=== PATIENT | male | born 1990 | race Caucasian/White ===

== ENCOUNTER 2016-04-23 17:53 | Emergency (ER) | payer BC ==
[2016-04-23 18:17] VITALS: BP 142/72
--- NOTE | 2016-04-23 18:54 | UC ---
Respiratory Complaint HPI - HPI Summary HPI Summary: 25 yo male with cough/runny nose x 3 days no f/c no n/v/d no myalgias no CP or sob - History of Current Complaint Chief Complaint: UCGeneralIllness Stated Complaint: COUGH CONGESTION Time Seen by Provider: 04/23/16 18:41 Onset/Duration: Sudden Onset, Lasting Days Timing: Constant Severity Initially: Mild Severity Currently: Mild Pain Intensity: 0 Pain Scale Used: 0-10 Numeric Aggravating Factors: Nothing Alleviating Factors: Nothing Associated Signs And Symptoms: Positive: Nasal Congestion. Negative: Dyspnea, Fever, Chills, Pleuritic Chest Pain, Wheezing, Hemoptysis, Dizziness, Calf Pain , Calf Swelling, Edema, URI, Hoarseness, Sinus Discomfort - Allergies/Home Medications Allergies/Adverse Reactions: Allergies Allergy/AdvReac Type Severity Reaction Status Date / Time Doxycycline AdvReac Severe vomit and Verified 04/23/16 18:17 sweat Home Medications: Home Medications Metoprolol Tartrate TAB* [Lopressor TAB*] 50 mg PO BID 04/23/16 [History Confirmed 04/23/16] PMH/Surg Hx/FS Hx/Imm Hx Previously Healthy: Yes Endocrine History Of: Denies: Diabetes Cardiovascular History Of: Reports: Hypertension Denies: Pacemaker/ICD Respiratory History Of: Reports: Asthma GI/ History Of: Denies: Renal Disease - Surgical History Surgical History: Yes Surgery Procedure, Year, and Place: nose septum reconstruction 2013; 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 x 2 and 2013 x 1, T&A 2007 - Family History Known Family History: Positive: Hypertension, Diabetes - Social History Alcohol Use: Occasionally Substance Use Type: None Smoking Status (MU): Never Smoked Tobacco Household Exposure Type: Cigarettes - Immunization History Most Recent Influenza Vaccination: none Review of Systems Constitutional: Negative Skin: Negative Eyes: Negative ENT: Sore Throat, Nasal Discharge Respiratory: Cough Cardiovascular: Negative Gastrointestinal: Negative Genitourinary: Negative Motor: Negative Neurovascular: Negative Musculoskeletal: Negative Neurological: Negative Psychological: Negative All Other Systems Reviewed And Are Negative: Yes Physical Exam Triage Information Reviewed: Yes Appearance: Well-Appearing, No Pain Distress, Well-Nourished Vital Signs: Initial Vital Signs Temp 98.0 F 04/23/16 18:13 Pulse 75 04/23/16 18:13 Resp 17 04/23/16 18:13 BP 142/72 04/23/16 18:13 Pulse Ox 99 04/23/16 18:13 ENT: Positive: Hearing grossly normal, Pharynx normal, Nasal congestion, Nasal drainage. Negative: Tonsillar swelling, Tonsillar exudate, Trismus, Muffled/ hoarse voice Neck: Positive: Supple, Nontender, No Lymphadenopathy Respiratory: Positive: Lungs clear, Normal breath sounds, No respiratory distress, No accessory muscle use Cardiovascular: Positive: RRR, No Murmur, Pulses Normal Musculoskeletal: Positive: ROM Intact, No Edema Neurological: Positive: Alert, Muscle Tone Normal Psychological Exam: Normal Skin Exam: Normal UC Diagnostic Evaluation - Laboratory O2 Sat by Pulse Oximetry: 99 Respiratory Course/Dx - Differential Dx/Diagnosis Provider Diagnoses: viral URI Discharge - Discharge Plan Condition: Stable Disposition: HOME Patient Education Materials: Upper Respiratory Infection (ED) Forms: *Gen. Provider Communication Referrals: BLADE Cardona [Primary Care Provider] - Additional Instructions: 25 yo male with runny nose/cough x 3 days no fever no chills no myalgias no CP or SOB states his boss wants him to get a note saying he is ok to work
== END 2016-04-23 19:10 | disposition home or self-care (01) ==
LOC: UCCORT 17:53
DX: J06.9 Acute upper respiratory infection, unspecified (principal); I10 Essential (primary) hypertension; Z88.1 Allergy status to other antibiotic agents; Z77.22 Contact with and (suspected) exposure to environmental tobacco smoke (acute) (chronic)
CPT/HCPCS: 99211; G0463

== ENCOUNTER 2016-06-27 10:37 | Emergency (ER) | payer SELFPAY ==
[2016-06-27 12:07] VITALS: BP 130/77
--- NOTE | 2016-06-27 12:33 | UC ---
Hand/Wrist HPI - HPI Summary HPI Summary: patient hit his left hand with a hammer two days ago. 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 wrist movement good, snuff box tenderness - History Of Current Complaint Chief Complaint: UCUpperExtremity Stated Complaint: LEFT HAND INJURY W/C Time Seen by Provider: 06/27/16 12:26 Hx Obtained From: Patient ?: No Onset/Duration: Sudden Onset, Lasting Days Severity Initially: Severe Severity Currently: Moderate Character Of Pain: Aching, Stiffness Alleviating: Nothing Associated Signs And Symptoms: Positive: Swelling, Bruising - Allergies/Home Medications Allergies/Adverse Reactions: Allergies Allergy/AdvReac Type Severity Reaction Status Date / Time Doxycycline AdvReac Severe vomit and Verified 06/27/16 12:07 sweat Home Medications: Home Medications Ibuprofen TAB* [Advil TAB*] 800 mg PO Q8H PRN 06/27/16 [History Confirmed ] Levocarnitine 330 mg PO TID 06/27/16 [History Confirmed 06/27/16] Oxcarbazepine [Trileptal 300 mg tab] 300 mg PO BID 06/27/16 [History Confirmed 06/27/16] PMH/Surg Hx/FS Hx/Imm Hx Previously Healthy: Yes Endocrine History Of: Denies: Diabetes Cardiovascular History Of: Reports: Hypertension Denies: Pacemaker/ICD Respiratory History Of: Reports: Asthma GI/ History Of: Denies: Renal Disease - Surgical History Surgical History: Yes Surgery Procedure, Year, and Place: nose septum reconstruction 2013; 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 x 2 and 2012 x 1, T&A 2007 - Family History Known Family History: Positive: Hypertension, Diabetes - Social History Alcohol Use: Rare Substance Use Type: None Smoking Status (MU): Never Smoked Tobacco Household Exposure Type: Cigarettes - Immunization History Most Recent Influenza Vaccination: none Review of Systems Constitutional: Negative Skin: Bruising Eyes: Negative ENT: Negative Respiratory: Negative Cardiovascular: Negative Gastrointestinal: Negative Genitourinary: Negative Motor: Negative Neurovascular: Negative Musculoskeletal: Edema - left hand Neurological: Negative Psychological: Negative All Other Systems Reviewed And Are Negative: Yes Physical Exam Triage Information Reviewed: Yes Appearance: Well-Appearing, Well-Nourished, Pain Distress Vital Signs: Initial Vital Signs Temp 97.7 F 06/27/16 12:00 Pulse 59 06/27/16 12:00 Resp 12 06/27/16 12:00 BP 130/77 06/27/16 12:00 Pulse Ox 100 06/27/16 12:00 Vital Signs Reviewed: Yes Eye Exam: Normal Eyes: Positive: Conjunctiva Clear ENT Exam: Normal ENT: Positive: Hearing grossly normal, Pharynx normal, TMs normal Dental Exam: Normal Neck exam: Normal Neck: Positive: Supple, Nontender, No Lymphadenopathy Respiratory Exam: Normal Respiratory: Positive: Chest non-tender, Lungs clear, Normal breath sounds Cardiovascular Exam: Normal Cardiovascular: Positive: RRR, No Murmur, Pulses Normal Abdominal Exam: Normal Abdomen Description: Positive: Nontender, No Organomegaly, Soft Bowel Sounds: Positive: Present Musculoskeletal Exam: Normal Musculoskeletal: Positive: Strength Intact, ROM Intact, Edema @ - in left hand Neurological Exam: Normal Psychological Exam: Normal Skin Exam: Normal Hand/Wrist Course/Dx - Course Course Of Treatment: hx obtained, exam performed, meds reviewed, denies need for pain medication. xray obtained neg for fracture. - Differential Dx/Diagnosis Differential Diagnosis/HQI/PQRI: Contusion, Dislocation, Fracture, Infection, Sprain, Strain Provider Diagnoses: left hand contusion Discharge - Discharge Plan Condition: Stable Disposition: HOME Patient Education Materials: Contusion in Adults (ED) Referrals: BLADE Cardona [Medical Doctor] - Additional Instructions: wear the silvano wrap for swelling, ibuprofen as needed for pain
--- NOTE | 2016-06-27 12:56 | RAD ---
INDICATION: Left hand injury COMPARISON: None TECHNIQUE: AP, lateral, and oblique views were obtained. FINDINGS: There is no acute fracture or dislocation. There is prominent soft tissue swelling over the dorsum of the hand.. IMPRESSION: SOFT TISSUE SWELLING. NO ACUTE FRACTURE.
== END 2016-06-27 13:09 | disposition home or self-care (01) ==
LOC: UCCORT 10:37
DX: S60.222A Contusion of left hand, initial encounter (principal); W22.8XXA Striking against or struck by other objects, initial encounter; Y93.89 Activity, other specified; Y92.89 Other specified places as the place of occurrence of the external cause; Y99.0 Civilian activity done for income or pay; I10 Essential (primary) hypertension; J45.909 Unspecified asthma, uncomplicated; Z88.1 Allergy status to other antibiotic agents; Z77.22 Contact with and (suspected) exposure to environmental tobacco smoke (acute) (chronic)
CPT/HCPCS: 99212; G0463

== ENCOUNTER 2018-08-13 18:21 | Emergency (ER) | payer SELFPAY ==
--- NOTE | 2018-08-13 19:55 | UC ---
Hand/Wrist HPI - HPI Summary HPI Summary: Punched wall 1 mo. ago w/ R hand. Today he has noticed it still hurts and sometimes feels bruised. OF note he is R handed. denies any changes to function. - History Of Current Complaint Stated Complaint: RIGHT HAND OLD INJURY Time Seen by Provider: 08/13/18 19:54 Hx Obtained From: Patient Character Of Pain: Dull Aggravating Factor(s): Movement - certain movements. Associated Signs And Symptoms: Positive: Swelling. Negative: Redness, Bruising , Numbness/Tingling - Allergies/Home Medications Allergies/Adverse Reactions: Allergies Allergy/AdvReac Type Severity Reaction Status Date / Time doxycycline Allergy Vomiting Verified 08/13/18 20:03 PMH/Surg Hx/FS Hx/Imm Hx Previously Healthy: Yes Cardiovascular History: Hypertension - Surgical History Surgical History: Yes Surgery Procedure, Year, and Place: nose septum reconstruction 2013; 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 x 2 and 2013 x 1, T&A 2007 - Family History Known Family History: Positive: Hypertension, Diabetes - Social History Alcohol Use: Rare Substance Use Type: None Smoking Status (MU): Never Smoked Tobacco Household Exposure Type: Cigarettes - Immunization History Most Recent Influenza Vaccination: none Most Recent Tetanus Shot: within last couple of years Review of Systems All Other Systems Reviewed And Are Negative: Yes Constitutional: Negative: Fever Skin: Negative: Bruising Motor: Negative: Decreased ROM, Weakness Musculoskeletal: Positive: Arthralgia - R hand/fist. Negative: Decreased ROM Neurological: Negative: Weakness, Paresthesia Physical Exam Triage Information Reviewed: Yes Appearance: Well-Appearing Vital Signs Reviewed: Yes Musculoskeletal: Positive: Strength Intact - R hand, ROM Intact - R, No Edema - R Neurological: Positive: Alert Hand/Wrist Course/Dx - Course Course Of Treatment: R chronic hand pain after punching wall 1 mo. ago. XRAY did not show obvious fx. R hand dominant. Could be residual pain and offered PT. Pt declined. ADvised otc nsaids for inflammation. - Differential Dx/Diagnosis Differential Diagnosis/HQI/PQRI: Tendonitis, Tenosynovitis Provider Diagnosis: Hand pain, right Discharge - Sign-Out/Discharge Documenting (check all that apply): Patient Departure All imaging exams completed and their final reports reviewed: No - Discharge Plan Condition: Good Disposition: HOME Patient Education Materials: Arthralgia (ED) Referrals: Govind Rodney PA [Primary Care Provider] - Additional Instructions: follow up with your main doctor if this still hurts - Billing Disposition and Condition Condition: GOOD Disposition: Home
[2018-08-13 20:07] VITALS: BP 148/92
== END 2018-08-13 20:28 | disposition home or self-care (01) ==
LOC: UCCORT 18:21
DX: M79.641 Pain in right hand (principal); I10 Essential (primary) hypertension; Z77.22 Contact with and (suspected) exposure to environmental tobacco smoke (acute) (chronic)
CPT/HCPCS: 99211; G0463

== ENCOUNTER 2018-08-13 18:21 | Emergency (ER) | payer BC, OTHER ==
--- OUTSIDE RECORDS SUMMARY | 2018-08-13 18:40 | XMS REPORT | Continuity of Care Document ---
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 Onset: 12/30/2011 Head and neck swelling Luke Monzon M.D. Onset: 06/10/2012 Deviated nasal septum Luke Monzon M.D. Onset: 12/30/2011 Sialoadenitis Luke Monzon M.D. Onset: 06/10/2012 Dysfunction of eustachian tube Luke Monzon M.D. Onset: 12/30/2011 Gastroesophageal reflux disease Luke Monzon M.D. Onset: 06/10/2012 Family History Date Family Member(s) Observation Comments General Asthma And Allergies General None Social History Type Date Description Comments Sex Unknown Marital Status Single Marital Status Single Occupation [employer] Occupation Disabled Tobacco Use Start: Unknown Never Smoked Cigarettes Tobacco Use Start: Unknown Never Smoked Cigarettes ETOH Use Rarely consumes alcohol ETOH Use Drinks Alcoholic Beverages Rarely Recreational Drug Use Never Used Drugs Recreational Drug Use Never Used Drugs Tobacco Use Start: Unknown Patient has never smoked Allergies, Adverse Reactions, Alerts Active Allergies Reaction Severity Comments Date Doxycycline VOMITTING 12/30/2011 Medications Active Medications SIG Qnty Indications Ordering Provider Date Meclizine HCL 1 po tid 20tabs Unknown 25mg Tablets Ventolin HFA 2 puffs every 4 1units Unknown hrs as needed 108(90Base) mcg/Act only Aerosol Gabapentin 1 by mouth three Unknown 600mg times a day Tablets Tizanidine HCL 1 by mouth three Unknown 4mg times a day as Capsules needed Metoprolol Tartrate 1 by mouth twice Unknown a day 50mg Tablets Vanquish Unknown [phone] Tablets Lamotrigine every day Unknown 100mg Tablets History Medications Dexamethasone one tab daily for 15tabs Luke Monzon, 01/31/2014 - 1mg Tablets 15 days. M.D. 02/11/2014 Mupirocin apply around the 1units Luke Monzon, 11/29/2013 - 2% Ointment Neck twice daily M.D. 01/30/2014 2 weeks Please script was wrong. thanks Amoxicillin 1 by mouth twice 20tabs Luke Monzon, 11/11/2013 - 875mg Tablets a day for 10 days M.D. 11/28/2013 Prednisone 1 by mouth every 3tabs Luke Monzon, 11/11/2013 - 10mg Tablets morning M.D. 11/28/2013 Nasonex 2 sprays each 17GMbottl Luke Monzon, 09/27/2013 - 50mcg/Act nostril daily M.D. 11/10/2013 Suspension Cephalexin 500 mg tid 7 days 21tabs Luke Monzon, 06/25/2013 - 500mg Tablets M.D. 09/26/2013 Percocet 2 po qid prn for 12tabs Luke Monzon, 06/25/2013 - 5-325mg Tablets pain M.D. 09/26/2013 Omeprazole 1 po qd 60caps Luke Monzon, 06/02/2013 - 40mg Capsules DR Barrera 11/10/2013 Cyclobenzaprine HCL 1/2-1 tab qhs 14tabs Luke Monzon, 12/11/2012 - 10mg M.D. 06/02/2013 Tablets Percocet 1-2 po q 4 hours 24tabs Luke Monzon, 11/03/2012 - 5-325mg Tablets prn for pain M.D. 11/12/2012 Azelastine HCL 2 sprays each 1units Luke Monzon, 09/02/2012 - 137mcg/[place] nostril qd M.D. 10/29/2012 Solution Astepro 2 sprays each 1units Luke Monzon, 08/21/2012 - 0.15% Solution nostril qd M.D. 10/29/2012 Fluticasone Propionate 2 sprays both 3units Luke Monzon, 08/17/2012 - nostrils qd M.D. 08/21/2012 50mcg/Act Suspension Cephalexin 500 mg tid 7 days 21tabs Luke Monzon, 06/10/2012 - 500mg Tablets M.D. 06/23/2012 Amoxicillin 1 po tid 21tabs Luke Monzon, 03/10/2012 - 500mg Tablets M.D. 06/23/2012 Meclizine HCL 1-2 po q 6 hours 30tabs Unknown - 12.5mg prn dizzyness 01/10/2012 Tablets Lisinopril Daily Unknown - 10mg Tablets 03/19/2016 Hydrocodone/Acetaminoph prn Unknown - en 10/29/2012 5-325mg Tablets Lisinopril/Hydrochlorot Unknown - hiazide 10/29/2012 10-12.5mg Tablets Ibuprofen 1 po q 8hrs prn 60tabs Unknown - 800mg Tablets 01/30/2014 Cephalexin 14tabs Unknown - 500mg Tablets 11/19/2012 Neurontin take as directed 90caps Unknown - Capsules 03/19/2016 Mylanta Unknown - [id number]/5ML 03/19/2016 Suspension Vital Signs Date Vital Result Comment 07/16/2018 3:32pm Weight 201.00 lb Height 71 inches 5'11" BMI (Body Mass Index) 28.0 kg/m2 BP Systolic 107 mmHg BP Diastolic 76 mmHg Heart Rate 87 /min O2 % BldC Oximetry 98 % Body Temperature 98.1 F Pain Level 0 02/10/2017 2:15pm Weight 204.25 lb Height 71 inches 5'11" BMI (Body Mass Index) 28.5 kg/m2 BP Systolic 147 mmHg BP Diastolic 88 mmHg Heart Rate 77 /min O2 % BldC Oximetry 99 % Body Temperature 97.9 F Pain Level 0 11/29/2016 8:00am Weight 207.00 lb Height 71 inches 5'11" BMI (Body Mass Index) 28.9 kg/m2 BP Systolic 126 mmHg BP Diastolic 84 mmHg Heart Rate 60 /min O2 % BldC Oximetry 98 % Body Temperature 97.5 F Pain Level 0 05/29/2016 8:22am Weight 213.00 lb Height 71 inches 5'11" BMI (Body Mass Index) 29.7 kg/m2 BP Systolic 122 mmHg BP Diastolic 78 mmHg Heart Rate 71 /min O2 % BldC Oximetry 97 % Body Temperature 98.0 F 04/04/2016 9:46am Weight 198.00 lb Height 71 inches 5'11" BMI (Body Mass Index) 27.6 kg/m2 BP Systolic 130 mmHg BP Diastolic 70 mmHg Heart Rate 59 /min O2 % BldC Oximetry 99 % Body Temperature 97.6 F 03/20/2016 1:55pm Weight 199.00 lb Height 71 inches 5'11" BMI (Body Mass Index) 27.8 kg/m2 BP Systolic 138 mmHg BP Diastolic 88 mmHg Heart Rate 91 /min O2 % BldC Oximetry 98 % Body Temperature 99.2 F 03/07/2014 8:49am Weight 207.00 lb Height 71 inches 5'11" BMI (Body Mass Index) 28.9 kg/m2 BP Systolic 138 mmHg BP Diastolic 92 mmHg Heart Rate 98 /min O2 % BldC Oximetry 96 % Body Temperature 96.8 F 01/31/2014 8:31am Weight 201.38 lb with boots Height 71 inches 5'11" BMI (Body Mass Index) 28.1 kg/m2 BP Systolic 134 mmHg BP Diastolic 84 mmHg Heart Rate 83 /min O2 % BldC Oximetry 98 % Body Temperature 97.5 F 11/29/2013 8:50am Weight 200.38 lb Height 71 inches 5'11" BMI (Body Mass Index) 27.9 kg/m2 BP Systolic 124 mmHg BP Diastolic 82 mmHg Heart Rate 94 /min O2 % BldC Oximetry 98 % Body Temperature 97.1 F 11/11/2013 8:48am Weight 199.00 lb Height 71 inches 5'11" BMI (Body Mass Index) 27.8 kg/m2 BP Systolic 130 mmHg BP Diastolic 82 mmHg Heart Rate 105 /min O2 % BldC Oximetry 98 % Body Temperature 98.0 F 09/27/2013 9:08am Weight 204.00 lb Height 71 inches 5'11" BMI (Body Mass Index) 28.4 kg/m2 BP Systolic 130 mmHg BP Diastolic 78 mmHg Heart Rate 72 /min O2 % BldC Oximetry 104 % Body Temperature 98.2 F 07/14/2013 6:42pm Weight 200.38 lb Height 71 inches 5'11" BMI (Body Mass Index) 27.9 kg/m2 BP Systolic 138 mmHg BP Diastolic 80 mmHg Heart Rate 93 /min O2 % BldC Oximetry 97 % Body Temperature 99.5 F 06/28/2013 10:06am BP Systolic 122 mmHg BP Diastolic 82 mmHg Heart Rate 99 /min O2 % BldC Oximetry 98 % Body Temperature 97.8 F 06/25/2013 3:39pm BP Systolic 132 mmHg BP Diastolic 80 mmHg Heart Rate 98 /min O2 % BldC Oximetry 99 % Body Temperature 98.6 F 06/02/2013 1:49pm Weight 202.25 lb Height 71 inches 5'11" BMI (Body Mass Index) 28.2 kg/m2 BP Systolic 114 mmHg BP Diastolic 78 mmHg Body Temperature 98.9 F 12/11/2012 2:29pm Weight 203.00 lb Height 71 inches 5'11" BMI (Body Mass Index) 28.3 kg/m2 BP Systolic 112 mmHg BP Diastolic 80 mmHg Heart Rate 88 /min O2 % BldC Oximetry 98 % Body Temperature 98.2 F 11/12/2012 2:24pm Weight 203.00 lb Height 71 inches 5'11" BMI (Body Mass Index) 28.3 kg/m2 BP Systolic 128 mmHg BP Diastolic 74 mmHg Heart Rate 98 /min O2 % BldC Oximetry 99 % Body Temperature 98.6 F 09/16/2012 10:44am Weight 205.00 lb BP Systolic 134 mmHg BP Diastolic 70 mmHg Heart Rate 93 /min O2 % BldC Oximetry 98 % Body Temperature 99.0 F 08/17/2012 10:40am Weight 205.00 lb BMI (Body Mass Index) 27.4 kg/m2 BP Systolic 120 mmHg BP Diastolic 86 mmHg Heart Rate 94 /min O2 % BldC Oximetry 98 % Body Temperature 98.5 F 07/16/2012 10:30am BP Systolic 126 mmHg BP Diastolic 84 mmHg Heart Rate 84 /min Body Temperature 97.8 F 07/08/2012 8:42am BP Systolic 130 mmHg BP Diastolic 90 mmHg Heart Rate 93 /min O2 % BldC Oximetry 99 % Body Temperature 98.1 F 06/10/2012 1:09pm Weight 208.00 lb Height 72.5 inches 6'0.50" BMI (Body Mass Index) 27.8 kg/m2 BP Systolic 110 mmHg BP Diastolic 84 mmHg Heart Rate 81 /min O2 % BldC Oximetry 97 % Body Temperature 97.7 F 03/10/2012 11:13am Weight 201.00 lb Height 71 inches 5'11" BMI (Body Mass Index) 28.0 kg/m2 BP Systolic 130 mmHg BP Diastolic 88 mmHg Heart Rate 93 /min O2 % BldC Oximetry 100 % Body Temperature 97.9 F 01/10/2012 1:40pm BP Systolic 110 mmHg BP Diastolic 70 mmHg Heart Rate 93 /min O2 % BldC Oximetry 99 % 12/30/2011 8:42am Weight 191.00 lb Height 71 inches 5'11" BMI (Body Mass Index) 26.6 kg/m2 BP Systolic 130 mmHg BP Diastolic 94 mmHg Heart Rate 111 /min O2 % BldC Oximetry 99 % Body Temperature 97.5 F Results Test Date Facility Test Result H/L Range Note Laboratory test 02/10/2017 [facility] Surgical SEE RESULT [address] [place] [address] [phone] Laboratory test 03/26/2016 [facility] Surgical SEE RESULT [address] Pathology BELOW [place], [place] [id number] [phone] Laboratory test 11/05/2012 [facility] Soft Tissue See Note [address] [place] [address] [phone] Basic Metabolic 10/30/2012 [facility] Glucose 81 mg/dL 76- [address] [place] [address] [phone] BUN 14 mg/dL 5-23 Creatinine 1.0 mg/dL 0.5-1.4 Glom Filtration Rate, Estimate >60 mL/min >60 If >60 mL/min >60 4 BUN/Creat 14.0 ratio Sodium 139 mmol/L 136-145 Potassium 4.3 mmol/L 3.5-5.1 Chloride 104 mmol/L 98-107 Carbon Dioxide 29 mEq/L 18-29 Anion Gap 10 mEq/L 8-16 Calcium 9.1 mg/dL 8.5-10.1 CBC 10/30/2012 [facility] White Blood Count 5.4 K/uL 3.4- 10.[address] [place] [address] [phone] Red Blood Count 5.01 M/uL 4.20-5.80 Hemoglobin 14.7 gm/dL 12.8-17.0 Hematocrit 41.0 % 38.0-48.0 Mean Cell Volume 81.8 fl 80.0-96.0 Mean Corpuscular HGB 29.3 pg 27.0-33.0 Mean Corpuscular HGB Conc 35.9 g/dL 31.7-36.0 Platelet Count 242 K/uL 150-400 Red Cell Distri Width %CV 13.1 % 11.6-15.8 Mean Platelet Volume 10.1 fL 6.6-10.6 Urine Screen 10/30/2012 [facility] Urine Color YELLOW Yellow [address] [place] [address] [phone] Urine Clarity CLEAR Clear Urine Glucose - Dipstick NEGATIVE mg/dL Negative Urine Bilirubin - Dipstick NEGATIVE Negative Urine Ketone NEGATIVE mg/dL Negative Urine Specific [place] 1.020 1.010-1.030 Urine Blood NEGATIVE Negative Urine PH 6.0 Low 6.5-7.5 Urine Protein - Dipstick NEGATIVE mg/dL Negative Urine Urobilinogen - Dipstick 0.2 E.U./dL 0.2-1.0 Urine Nitrite - Dipstick NEGATIVE Negative Urine Leuk Esterase NEGATIVE Negative Laboratory test 07/03/2012 [facility] Soft Tissue See Note [address] [place] [address] [phone] CBC 07/01/2012 [facility] White Blood 5.3 K/uL 3.4-10. [address] Count [address] [place] [address] [phone] Red Blood Count 5.12 M/uL 4.20-5.80 Hemoglobin 14.5 gm/dL 12.8-17.0 Hematocrit 40.5 % 38.0-48.0 Mean Cell Volume 79.1 fl Low 80.0-96.0 Mean Corpuscular HGB 28.3 pg 27.0-33.0 Mean Corpuscular HGB Conc 35.8 g/dL 31.7-36.0 Platelet Count 251 K/uL 150-400 Red Cell Distri Width %CV 13.2 % 11.6-15.8 Mean Platelet Volume 9.1 fL 6.6-10.6 Urine Screen 07/01/2012 [facility] Urine Color YELLOW Yellow [address] [place], [place] [id number] [phone] Urine Clarity CLEAR Clear Urine Glucose - Dipstick NEGATIVE mg/dL Negative Urine Bilirubin - Dipstick NEGATIVE Negative Urine Ketone NEGATIVE mg/dL Negative Urine Specific [place] 1.025 1.010-1.030 Urine Blood NEGATIVE Negative Urine PH 6.0 Low 6.5-7.5 Urine Protein - Dipstick TRACE mg/dL Negative Urine Urobilinogen - Dipstick 0.2 E.U./dL 0.2-1.0 Urine Nitrite - Dipstick NEGATIVE Negative Urine Leuk Esterase NEGATIVE Negative Fna With Cell Block 06/13/2012 [facility] Nature of Specimen Right Parotid And DQ Stain (230)- - Text Diagnosis FNA: SIGNIFICANT <SEE NOTE> 6 Gross Pathology Received are a t <SEE NOTE> 7 Micro Pathology The smears, incl <SEE NOTE> 8 Cytology Report SEE IMAGE Clinical History Comment Comments These findings m <SEE NOTE> 9 1 SEE RESULT BELOW Name: MART BAL : [address]: Luke Monzon MD Acct: [id number] Unit: [id number] AGE: 26 Location: [facility] Re02/10/17 SEX: M Status: REG REF SPEC: [id number] RACHAEL: 02/10/17-[address] [facility] [address]: Luke Monzon MD REQ: [id number] RECD: 02/10/17 STATUS: SOUT _ ORDERED: LEVEL 3 COMMENTS: [id number] FINAL DIAGNOSIS Mid lower lip, excision: --Minor salivary gland tissue with mucocele. CLINICAL HISTORY No history given PRE-OPERATIVE DIAGNOSIS GROSS DESCRIPTION The specimen is received in formalin labeled, Mid Lower Lip Lesion, and consists of a 0.6 x 0.5 x 0.5 cm translucent chambers intact unilocular cyst with scant adherent soft tissue. The cyst contains translucent gelatinous to mucoid material. The specimen is inked, bisected and entirely submitted in one cassette. Signed (signature on file) Daren Hawk MD 1050 END OF REPORT * ML=Testing performed at Main Lab DEPARTMENT OF PATHOLOGY, [address] [place] [address] Daren Hawk M.D. Director [facility] # [id number] 2 SEE RESULT BELOW Name: MART BAL : [address]: Luke Monzon MD Acct: [id number] Unit: [id number] AGE: 25 Location: [facility] Re03/26/16 SEX: M Status: REG REF SPEC: [id number] RACHAEL: 03/26/16-[address] [facility] [address]: Luke Monzon MD REQ: [id number] RECD: 03/26/16 STATUS: SOUT _ ORDERED: LEVEL IV/2 COMMENTS: [id number] FINAL DIAGNOSIS 1. Left lower lip, biopsy: -- Skeletal muscle and fibroconnective tissue fragments with chronic inflammation and evidence of prior hemorrhage. -- No evidence of neoplasia. 2. Left upper lip, biopsy: -- Skeletal muscle and fibrovascular tissue; see comment. COMMENT: In specimen 2, it is possible that the findings represent an arteriovenous malformation. Clinical-pathologic correlation is recommended. CLINICAL HISTORY No history given GROSS DESCRIPTION 1. The specimen is received in formalin labeled, Left Lower Lip Lesion, and consists of a 0.5 x 0.3 x 0.2 cm chambers-red irregular soft tissue fragment, which is submitted entirely in one cassette. 2. The specimen is received in formalin labeled, Left Upper Lip Lesion, and consists of a 0.7 x 0.6 x 0.3 cm aggregate of chambers-red irregular soft tissue fragments, which is submitted entirely in one cassette. Signed (signature on file) Whitney Rice MD 1428 END OF REPORT * ML=Testing performed at Main Lab DEPARTMENT OF PATHOLOGY, [address] [place] [address] Daren Hawk M.D. Director [facility] # [id number] 3 OPERATION/PROCEDURE Re-excision of right neck mass DIAGNOSIS: "RIGHT NECK MASS, BIOPSY": LYMPH NODES WITH FOLLICULAR HYPERPLASIA, BENIGN, NONSPECIFIC. KEITH/faby GROSS Received in formalin labeled, "RIGHT NECK MASS" are four pieces of chambers, rubbery tissue measuring from 0.6 x 0.4 x 0.4 cm. to 1.8 x 1.1 x 0.9 cm. in greatest dimension. The largest two pieces are inked with different colors and serially sectioned. The entire part is submitted in toto in one block. KEITH/faby MICROSCOPIC These sections show lymph nodes with nonneoplastic appearing cortex, paracortex and medullary regions. There is mild expansion of the follicular regions relative to the other compartments of the lymph node. PRE OPERATIVE DIAGNOSIS Right neck mass REVIEW CODE CODE: I AURELIO Rhoades MD 11/09/12 1632 4 Note: Persistent reduction for 3 months or more in an eGFR <60 mL/min/1.73 m2 defines CKD. Patients with eGFR values >/=60 mL/min/1.73 m2 may also have CKD if evidence of persistent proteinuria is present. The original MDRD equation for estimated GFR is not valid for patients less than 18 years of age. Additional information may be found at www.kdoqi.org. 5 OPERATION/PROCEDURE Excision of right neck mass and biopsy. DIAGNOSIS: PART 1: "RIGHT NECK MASS, EXCISION": FRAGMENTED LYMPH NODE WITH MILD FOLLICULAR HYPERPLASIA, BENIGN, NONSPECIFIC. PART 2: "RIGHT NECK MASS, EXCISION": FRAGMENTED LYMPH NODE WITH MILD FOLLICULAR HYPERPLASIA, BENIGN, NONSPECIFIC. Mike INTERPRETATION COMMENT Flow cytometry studies were performed at [facility] ( [id number]). No evidence of non-Hodgkin lymphoma. GROSS Part 1. Received in formalin labeled, "RIGHT NECK MASS" are approximately 1.0 mL of chambers-pink, soft tissue. Submitted in toto in block #1. Part 2. Received fresh labeled, "RIGHT NECK MASS" are approximately 1.0 mL of chambers-pink soft tissue. Touch Preps were performed for management purposes and reveal a mixed population of lymphoid cells. Part of the tissue is submitted for flow cytometry study and the rest is submitted in toot in block #2. Mike MICROSCOPIC Parts 1,2: These sections show a lymph node with nonneoplastic appearing cortex, paracortex and medullary regions. There is mild expansion of the follicular regions relative to the other compartments of the lymph node. PRE OPERATIVE DIAGNOSIS Right neck mass REVIEW CODE CODE: I AURELIO Rhoades MD 07/07/12 1457 6 FNA: SIGNIFICANT FINDING PRESENT. CANNOT RULE OUT A LYMPHOPROLIFERATIVE DISORDER. SEE COMMENT. 7 Received are a total of six direct smears. Received in ethanol is one direct smear labeled with the patient's full name, Rt Parotid identical to that printed on the test requisition. Also received a ir dried already stained with Diff Quik are three direct smears labeled with the patient's full name, R Parotid identical to that printed on the test requisition. Also received air dried for Diff Q uik are two direct smears labeled with the patient's full name, R Parotid identical to that printed on the test requisition. Separately received in alcohol is 12 cc of clear fluid labeled with the mya chang's full name, R Parotid identical to that printed on the test requisition for histopathology sections, designated 1A . cds 8 The smears, including the Diff Quik stained smears, are cellular and partly preserved. They show numerous mature and immature lymphocytes, histiocytes and rare tingible body macrophages. Several foci s how many immature lymphocytes, some with plasmacytoid features and increased mitoses. Granulocytes including neutrophils and a few eosinophils are also noted. No evidence of granulomata, necrosis, Hodgk in cells or metastatic malignancy. No salivary gland tissue is present. The cell block sections show rare lymphocytes, precluding an IHC panel to determine the immunophenotype of these lymphocytes. 9 These findings most likely represent a reactive lymph node with florid follicular hyperplasia. However, a lymphoproliferative disorder cannot be ruled out. Suggest repeat FNA with a sample taken for tami w cytometric studies NOTE: It should be noted that lymph node FNA does not have high sensitivity for diagnosing micro metastasis and Hodgkin lymphoma. Lymph nodes partially replaced by tumor may also y ield a false negative result. This case was reviewed at consensus conference on 06/22/2012. Procedures Date Code Description Status 02/10/2017 21742 Exc.Les.Vesti.Of Mouth With Rep. Completed 03/26/2016 80847 Exc.Les.Vesti.Of Mouth With Rep. Completed 03/26/2016 96948 Exc.Les.Vesti.Of Mouth With Rep. Completed 03/07/2014 95809 Nasal Function Studies Completed 11/29/2013 16561 Nasal Endoscopy, Diag. Completed 09/27/2013 46915 Tympanometry Completed 09/27/2013 74168 Tympanometry Completed 09/27/2013 83390 Audiometry, Comprehensive Completed 09/27/2013 66520 Audiometry, Comprehensive Completed 09/27/2013 97945 Nasal Endoscopy, Diag. Completed 06/24/2013 16397 Septoplasty Completed 06/24/2013 19339 Exc.Turbinate/Partial Or Complete Completed 06/02/2013 45303 Ultrasound Head/Neck Completed 06/02/2013 51144 Fiberoptic Laryngoscopy,Diag. Completed 11/05/2012 63357 Exc.Tumor-Deep Subfascial,Intramuscular Completed 09/16/2012 49380 Ultrasound Head/Neck Completed 08/17/2012 01753 Ultrasound Head/Neck Completed 08/17/2012 08491 Fiberoptic Laryngoscopy,Diag. Completed 07/03/2012 25717 Exc.Tumor Soft Tiss Neck Or Thyro Completed 06/13/2012 71222 Ultrasonic Guide Needle Biopsy Completed 06/13/2012 82792 Fna W/Image Completed 06/10/2012 39165 Ultrasound Head/Neck Completed 06/10/2012 30096 Fiberoptic Laryngoscopy,Diag. Completed 01/02/2012 09898 Computerized Dynamic Posturography Completed 01/02/2012 42000 Caloric Vestibular Test W/Recording Completed 01/02/2012 01796 Basic Vestibular Eval Completed 12/30/2011 50825 Tympanometry Completed 12/30/2011 54128 Audiometry, Comprehensive Completed 05/30/2006 50726 Cont.Oropharyngeal Hemorrhage Completed 05/21/2006 40315 Tonsillectomy;Age 12 Or Over Completed Encounters Type Date Location Provider Dx Diagnosis Office Visit 11/29/2016 Main Office Luke Monzon M.D. K13.79 Other lesions of 8:00a oral mucosa S09.93xS Unspecified injury of face, sequela Office Visit 05/29/2016 8:15a Main Office Luke Monzon K13.79 Other lesions of M.D. oral mucosa S09.93xS Unspecified injury of face, sequela Office Visit 03/20/2016 1:45p Main Office Luke Monzon K13.79 Other lesions of M.D. oral mucosa S09.93xA Unspecified injury of face, initial encounter Office Visit 03/07/2014 8:45a Main Office Luke Monzon, 781.1 Smell & Taste M.D. Sensation Disturbances 473.9 Sinusitis Chronic Unspec Office Visit 01/31/2014 8:30a Main Office Luke Monzon, 381.81 Eustachian Tube M.D. Dysfunction 781.1 Smell & Taste Sensation Disturbances 472.0 Rhinitis Chronic Office Visit 11/29/2013 8:45a Main Office Luke Monzon M.D. 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 Dysfunction 472.0 Rhinitis Chronic 784.91 Postnasal Drip Office Visit 06/02/2013 1:45p Main Office Luke Monzon M.D. 470 Deviated Nasal Septum 472.0 Rhinitis Chronic 478.0 Hypertrophy Nasal Turbinates 530.81 Esophageal Reflux 527.2 Salivary Gland Sialoadenitis Office Visit 09/16/2012 10:45a Main Office Luke Monzon, 784.2 Mass/ Swelling, Neck Or M.D. Head 785.6 Lymph Nodes Enlargement 470 Deviated Nasal Septum Office Visit 08/17/2012 10:45a Main Office Luke Monzon, 784.2 Mass/ Swelling, Neck Or M.D. Head 785.6 Lymph Nodes Enlargement 530.81 Esophageal Reflux 472.0 Rhinitis Chronic 478.0 Hypertrophy Nasal Turbinates 470 Deviated Nasal Septum Office Visit 07/16/2012 10:30a Main Office Luke Monzon, 784.2 Mass/ Swelling, Neck Or M.D. Head 785.6 Lymph Nodes Enlargement Office Visit 06/30/2012 7:45a Main Office Luke Monzon, 784.2 Mass/ Swelling, Neck Or M.D. Head 527.2 Salivary Gland Sialoadenitis Office Visit 06/10/2012 12:00p Main Office Luke Monzon, 784.2 Mass/ Swelling, Neck Or M.D. Head 527.2 Salivary Gland Sialoadenitis 470 Deviated Nasal Septum 530.81 Esophageal Reflux Office Visit 03/10/2012 11:30a Main Office Zoe, 462 Pharyngitis Acute Mar, [place] Office Visit 01/10/2012 1:45p Main Office Luke Monzon M.D. 780.4 Dizziness & Giddiness 470 Deviated Nasal Septum Office Visit 12/30/2011 8:45a Main Office Luke Monzon, 780.4 Dizziness & M.D. Giddiness 470 Deviated Nasal Septum 381.81 Eustachian Tube Dysfunction Office Visit 05/20/2006 9:15a Main Office Luke Monzon, 474.11 Hypertrophy Tonsils M.D. Alone Office Visit 02/28/2006 4:15p Main Office Luke Monzon, 474.11 Hypertrophy Tonsils M.D. Alone
[2018-08-13 18:45] VITALS: BP 148/92
--- NOTE | 2018-08-13 18:52 | UC ---
Laceration HPI - HPI Summary HPI Summary: L hand laceration near thumb today at work. Actively bleeding and also noticed a dark area where he thinks there is metal. does report some pain. R handed. 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 - History Of Current Complaint Chief Complaint: SONIAkin Stated Complaint: LEFT THUMB/HAND LACERATION Time Seen by Provider: 08/13/18 18:33 Hx Obtained From: Patient Laceration Location: Hand Mechanism Of Injury: FB Potential Onset/Duration: Sudden Onset Pain Intensity: 2 Pain Scale Used: 0-10 Numeric Aggravating Factors: Nothing Related History: Occupational Injury, Dominant Hand Right - Allergies/Home Medications Allergies/Adverse Reactions: Allergies Allergy/AdvReac Type Severity Reaction Status Date / Time doxycycline Allergy Vomiting Verified 08/13/18 20:03 Home Medications: Home Medications Albuterol HFA INHALER* [Ventolin HFA Inhaler*] 1 puff INH Q4H PRN 08/13/18 [ History Confirmed 08/13/18] Gabapentin 300 mg PO TID 08/13/18 [History Confirmed 08/13/18] lamoTRIgine [Lamictal] 100 mg PO DAILY 08/13/18 [History] tiZANidine TAB* [Zanaflex TAB*] 4 mg PO DAILY 08/13/18 [History Confirmed ] PMH/Surg Hx/FS Hx/Imm Hx - Additional Past Medical History Additional PMH: chronic back pain Cardiovascular History: Hypertension Respiratory History: Asthma - Surgical History Surgical History: Yes Surgery Procedure, Year, and Place: nose septum reconstruction 2013; 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 x 2 and 2012 x 1, T&A 2006 - Family History Known Family History: Positive: Hypertension, Diabetes - Social History Alcohol Use: Rare Substance Use Type: None Smoking Status (MU): Never Smoked Tobacco Household Exposure Type: Cigarettes - Immunization History Most Recent Influenza Vaccination: none Most Recent Tetanus Shot: within last couple of years Review of Systems All Other Systems Reviewed And Are Negative: Yes Constitutional: Positive: Negative Skin: Positive: Other - bleeding and laceration at L hand Respiratory: Positive: Negative Cardiovascular: Positive: Negative Physical Exam Triage Information Reviewed: Yes Appearance: Well-Appearing Vital Signs: Initial Vital Signs Temp 97.5 F 08/13/18 18:40 Pulse 74 08/13/18 18:40 Resp 18 08/13/18 18:40 BP 148/92 08/13/18 18:40 Pulse Ox 99 08/13/18 18:40 Vital Signs Reviewed: Yes Musculoskeletal: Positive: Strength Intact - L hand, ROM Intact - L hand, No Edema - L hand Neurological: Positive: Alert Skin: Positive: Other - 7cm laceration in L hand, linear at web between L thumb and index. Was actively bleeding but we were able to stop bleeding. 2 sutures used of 4-0 vicryl. AT ANOTHER different area of hand but nearby laceration was an entry wound where a metal srikanth was noted. TEnder at this area. Laceration Repair - Laceration Repair 7 Description: Linear Laceration Size After Repair: Length (cm) - 7 Contamination/FB Removal: metal FB attempted to be removed as we could see it on XRAY and it appeared superficial. But ultimately FB removal was abandoned due to difficulty and depth. Modified For Repair: No Type Injection: Local Anesthesia Used: 2.0% Lido Closure Material: Skin Adhesive, SteriStrips Closure Method: Single Layer Suture Of: Skin Suture Type: Nylon Diagnostics - Radiology No standard instances Radiology Interpretation Completed By: ED Physician Summary of Radiographic Findings: foreign body noted Laceration Course/Dx - Course/Dx Course Of Treatment: At work today cut his L hand with machinery. We were able to do 2 sutures of 4- 0 vicryl and he will reutrn in 10 days for removal. At a separate site but near laceration was an area where a FB/metal lodged itself. During procedure we tried to remove but it was determined it was ultimately too deep. XRAY demonstrated metal FB as well. For this it was strongly recommended he get this removed from surgeon, we discussed where to go. 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 No tendon or nerve involvement. has FROM of L hand. Tetanus up to date. R handed. - Differential Dx - Laceration/Wound Differental Diagnoses: Abrasion, Hematoma, Laceration, Suture Removal, Tendon Laceration, Other - fx - Diagnosis Provider Diagnosis: Laceration, Foreign body (FB) in soft tissue Discharge - Sign-Out/Discharge Documenting (check all that apply): Patient Departure All imaging exams completed and their final reports reviewed: No - Discharge Plan Condition: Good Disposition: HOME Prescriptions: Cephalexin CAP* [Keflex CAP*] 500 mg PO BID 7 Days #14 cap Patient Education Materials: Soft Tissue Foreign Body (ED) Referrals: Imelda HERNANDEZ,Geovanni Kingston [Medical Doctor] - 1 Day (metal foreign body removal in hand ) Additional Instructions: to get the metal piece removed you will need to go to [place] . RETURN IN 7-10 DAYS FOR REMOVAL - Billing Disposition and Condition Condition: GOOD Disposition: Home
[2018-08-13] MEDS ORDERED: Lidocaine 2% PF * 5 ML VIAL INJ ONE (19:13)
--- NOTE | 2018-08-14 08:26 | UC ---
- EKG/XRAY/CT Xray Comments: pt sent to [facility] for FB removal Course/Dx - Diagnoses Provider Diagnoses: Laceration, Foreign body (FB) in soft tissue Discharge - Sign-Out/Discharge Documenting (check all that apply): Post-Discharge Follow Up All imaging exams completed and their final reports reviewed: Yes - Discharge Plan Condition: Good Disposition: HOME Prescriptions: Cephalexin CAP* [Keflex CAP*] 500 mg PO BID 7 Days #14 cap Patient Education Materials: Soft Tissue Foreign Body (ED) Referrals: Imelda HERNANDEZ,Geovanni Kingston [Medical Doctor] - 1 Day (metal foreign body removal in hand ) Additional Instructions: to get the metal piece removed you will need to go to [facility] . RETURN IN 7-10 DAYS FOR REMOVAL - Billing Disposition and Condition Condition: GOOD Disposition: Home
== END 2018-08-13 20:11 | disposition home or self-care (01) ==
LOC: UCCORT 18:21
DX: S61.012A Laceration without foreign body of left thumb without damage to nail, initial encounter (principal); S60.552A Superficial foreign body of left hand, initial encounter; I10 Essential (primary) hypertension; W45.8XXA Other foreign body or object entering through skin, initial encounter; Y99.0 Civilian activity done for income or pay; Z77.22 Contact with and (suspected) exposure to environmental tobacco smoke (acute) (chronic); Z79.899 Other long term (current) drug therapy
CPT/HCPCS: 12002; 99212; G0463